=== PATIENT | male | born 1975 | race Caucasian/White ===

== ENCOUNTER 2018-06-24 09:51 | Emergency (ER) | payer OTHER ==
--- NOTE | 2018-06-24 10:01 | EDPHY ---
H & P Time Seen by Provider: 06/24/18 10:00 HPI/ROS: Chief complaint. Palpitations HPI. Patient is a 43-year-old male has had frequent fluttering in the left chest for about 1 week. It feels somewhat like muscle spasm and does not feel deep per the patient. He has had similar symptoms previously with occasional heart a arrhythmia is but never been diagnosed. His symptoms are worse with lying still but can occur at rest and with exercise. No shortness of breath or cough. He has had a sore throat this week but no fever and no cough. Maybe slightly bloated abdomen without nausea vomiting or diarrhea. No abdominal pain. No unusual leg pain or swelling. ROS 10 systems were reviewed and negative with the exception of the elements mentioned in the history of present illness Past Medical/Surgical History: Healthy Social History: Single, nonsmoker, no alcohol Smoking Status: Never smoked Physical Exam: General Appearance: Alert well-developed male mild distress vital signs are stable Eyes: Pupils equal and round no pallor or injection. ENT, Mouth: Mucous membranes are moist. Respiratory: There are no retractions, lungs are clear to auscultation. Cardiovascular: Regular rate and rhythm. Gastrointestinal: Abdomen is soft and nontender, no masses, bowel sounds normal. Neurological: Awake and alert, sensory and motor exams grossly normal. Skin: Warm and dry, no rashes. Musculoskeletal: Neck is supple nontender. Extremities symmetrical, full range of motion. Psychiatric: Patient is oriented X 3, there is no agitation. Constitutional: Initial Vital Signs Temperature (C) 36.4 C 06/24/18 09:55 Heart Rate 60 06/24/18 09:55 Respiratory Rate 16 06/24/18 09:55 Blood Pressure 141/93 H 06/24/18 09:55 O2 Sat (%) 96 06/24/18 09:55 O2 Delivery Mode Room Air Allergies/Adverse Reactions: No Known Allergies Allergy (Unverified 06/24/18 09:54) Home Medications: Medication Instructions Recorded Cyclobenzaprine [Flexeril 10 MG 10 mg PO TID PRN #10 tab 06/24/18 (*)] Medical Decision Making - Diagnostics EKG Interpretation: EKG interpreted by me shows sinus bradycardia. Normal interval. Borderline left axis deviation. QRS is normal there is no significant ST elevation or depression. No arrhythmia. The rate is 49. Imaging Results: Imaging Impressions Chest X-Ray 06/24/18 10:28 Impression: Negative portable chest. Chest x-ray interpreted by me is normal Procedures: IV normal saline, monitor ED Course/Re-evaluation: Re-evaluation at 12:15 p.m.. Patient and I discussed imaging, EKG, laboratory evaluation. We discussed treatment plan including criteria for return importance follow-up and further evaluation. He expresses understanding and agreement Patient has continued to be on the monitor and there is no ectopy seen. Current blood pressure 112/77 with heart rate of 53 Differential Diagnosis: I considered acute coronary syndrome, pneumonia. The patient's workup is completely normal. He has been on a monitor and while he tells me he has been having the symptoms of fluttering there is no evidence of ectopy. I suspect that this is muscular in etiology - Data Points Laboratory Results: Laboratory Results 06/24/18 10:10 06/24/18 10:10 06/24/18 06/24/18 06/24/18 10:10 10:10 10:09 WBC 5.49 10^3/uL 10^3/uL (3.80-9.50) RBC 5.08 10^6/uL 10^6/uL (4.40-6.38) Hgb 16.4 g/dL g/dL (13.7-17.5) Hct 45.9 % % (40.0-51.0) MCV 90.4 fL fL (81.5-99.8) MCH 32.3 pg pg (27.9-34.1) MCHC 35.7 g/dL g/dL (32.4-36.7) RDW 11.6 % % (11.5-15.2) Plt Count 158 10^3/uL 10^3/uL (150-400) MPV 10.7 fL fL (8.7-11.7) Neut % (Auto) 60.6 % % (39.3-74.2) Lymph % (Auto) 25.7 % % (15.0-45.0) [place] % (Auto) 10.4 % % (4.5-13.0) Eos % (Auto) 2.4 % % (0.6-7.6) Baso % (Auto) 0.7 % % (0.3-1.7) Nucleat RBC Rel Count 0.0 % % (0.0-0.2) Absolute Neuts (auto) 3.33 10^3/uL 10^3/uL (1.70-6.50) Absolute Lymphs (auto) 1.41 10^3/uL 10^3/uL (1.00-3.00) Absolute Monos (auto) 0.57 10^3/uL 10^3/uL (0.30-0.80) Absolute Eos (auto) 0.13 10^3/uL 10^3/uL (0.03-0.40) Absolute Basos (auto) 0.04 10^3/uL 10^3/uL (0.02-0.10) Absolute Nucleated RBC 0.00 10^3/uL 10^3/uL (0-0.01) Immature Gran % 0.2 % % (0.0-1.1) Immature Gran # 0.01 10^3/uL 10^3/uL (0.00-0.10) Sodium 141 mEq/L mEq/L (135-145) Potassium 4.1 mEq/L mEq/L (3.3-5.0) Chloride 104 mEq/L mEq/L (97-110) Carbon Dioxide 27 mEq/l mEq/l (22-31) Anion Gap 10 mEq/L mEq/L (8-16) BUN 16 mg/dL mg/dL (7-23) Creatinine 0.9 mg/dL mg/dL (0.7-1.3) Estimated GFR > 60 Glucose 89 mg/dL mg/dL (70-100) Calcium 9.7 mg/dL mg/dL (8.5-10.4) POC Troponin I 0.00 ng/mL ng/mL (0.00-0.08) Point of Care Test Results: Chemistry 06/24/18 10:09 POC Troponin I 0.00 ng/mL ng/mL (0.00-0.08) Departure - Departure Disposition: Home, Routine, Self-Care Clinical Impression: Chest pain Qualifiers: Chest pain type: unspecified Qualified Code(s): R07.9 - Chest pain, unspecified Condition: Good Instructions: Chest Pain (ED) Additional Instructions: You're workup today has been normal. Try using heat to the left side of your chest. Ibuprofen 600 mg every 6 hr for discomfort. Flexeril as muscle relaxer Return for worsening symptoms. Re-evaluation by Dr. Lopez in 2 days if not improved Referrals: ASHWIN LOPEZ [Primary Care Provider] - 2-3 days, if not improved Prescriptions: Cyclobenzaprine [Flexeril 10 MG (*)] 10 mg PO TID PRN #10 tab PRN Reason: Spasms
[2018-06-24 10:42] LABS: PLATELET COUNT 158 10^3/uL (150-400)
--- NOTE | 2018-06-24 11:06 | CPEKG ---
Test Reason : OPEN Blood Pressure : / mmHG Vent. Rate : 049 BPM Atrial Rate : 049 BPM P-R Int : 157 ms QRS Dur : 081 ms QT Int : 368 ms P-R-T Axes : 043 012 055 degrees QTc Int : 333 ms Sinus bradycardia Confirmed by Jaswant Ojeda ([id number]) on 06/24/2018 11:05:37 AM Referred By: Confirmed By:Jaswant Ojeda
[2018-06-24 12:32] VITALS: BP 116/81
== END 2018-06-24 12:33 | disposition home or self-care (01) ==
DX: R07.9 Chest pain, unspecified (principal)
CPT/HCPCS: 84484-PO